=== PATIENT | female | born 1955 ===

== ENCOUNTER 2020-11-13 17:20 | Emergency (ER) | payer BC ==
[~2020-11-13] VITALS: Ht 157.5 cm; Wt 81.2 kg
[2020-11-13] MEDS ORDERED: PROPRANOLOL HCL80 MG (18:08)
[2020-11-13] MEDS ORDERED: ARMOUR THYROID90 MG (18:09)
[2020-11-13] MEDS ORDERED: ZANAFLEX2 MG (18:10)
== END 2020-11-13 22:22 | disposition home or self-care (01) ==
LOC: ER 17:20
DX: N39.0 Urinary tract infection, site not specified (principal)

== ENCOUNTER 2022-06-08 20:35 | Emergency (ER) | payer BC ==
[~2022-06-08] VITALS: Ht 160 cm; Wt 78.0 kg
[~2022-06-08 20:35] MED LIST: ARMOUR THYROID90 MG; PROPRANOLOL HCL80 MG; ZANAFLEX2 MG
[2022-06-08] MEDS ORDERED: PROPRANOLOL HCL60 MG (21:00)
[2022-06-08] MEDS ORDERED: NP THYROID 120120 MG (21:00)
[2022-06-08] MEDS ORDERED: LIOTHYRONINE SO5 MCG (21:00)
[2022-06-08] MEDS ORDERED: NP THYROID15 MG (21:01)
[2022-06-08] MEDS ORDERED: L-METHYLFOLATE7.5 M1 (21:01)
[2022-06-08] MEDS ORDERED: FLUCONAZOLE200 MG (21:01)
[2022-06-08] MEDS ORDERED: NP THYROID90 MG (21:01)
[2022-06-09] MEDS ORDERED: FLONASE ALLERG9.9 ML NASAL (00:08)
[2022-06-09] MEDS ORDERED: CLARITIN10 M2 PO (00:08)
== END 2022-06-09 00:22 | disposition home or self-care (01) ==
LOC: ER 20:35
DX: J06.9 Acute upper respiratory infection, unspecified (principal); R05.9 Cough, unspecified; I10 Essential (primary) hypertension; E03.9 Hypothyroidism, unspecified; Z20.822 Contact with and (suspected) exposure to COVID-19; Z91.018 Allergy to other foods